=== PATIENT | male | born 1960 | race Two or more races ===

== ENCOUNTER 2022-07-14 20:12 | Emergency (ER) | payer OTHER ==
[~2022-07-14] VITALS: Ht 172.7 cm; Wt 72.6 kg
[2022-07-14 20:29] VITALS: BP_SYST 138
--- NOTE | 2022-07-14 20:35 | NUR ---
PT HERE BIB DAUGHTER C/O RT HAND,LLE AND HEAD PAIN S/P FALL D/T MEDICAL CONDITION. PER DAUGHTER PT FELL 30 MINS PRIOR TO ER ARRIVAL, DENIES KO. PER DAUGHTER PT FALL FREQUENTLY PMH:MUSCLE ATROPHY, FREQUENT FALL PT AAOX4, NO SOB NOTED AND NAD. PENDING MD ARGUELLO
--- NOTE | 2022-07-14 22:00 | NUR ---
Patient left without being seen.
== END 2022-07-14 22:00 | disposition left against medical advice (07) ==
LOC: SED 20:12
DX: M79.641 Pain in right hand (principal); M79.662 Pain in left lower leg; R51.9 Headache, unspecified; Z53.21 Procedure and treatment not carried out due to patient leaving prior to being seen by health care provider